=== PATIENT | male | born 1945 | race Caucasian/White ===

== ENCOUNTER 2016-09-16 15:06 | Inpatient (IN) ==
[2016-09-16] MEDS ORDERED: FUROSEMIDE 40 MG/4 ML VIAL IV STA (15:35)
[2016-09-16] MEDS ORDERED: DILTIAZEM 50 MG/10 ML VIAL IV STA ×2 (15:35→17:10)
--- NOTE | 2016-09-16 15:36 | EKG Report ---
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
[2016-09-16] MEDS ORDERED: ALBUTEROL/IPRATROPIUM 3 ML NEB RESP TX STA (15:42)
[2016-09-16] MEDS ORDERED: MORPHINE 2 MG/1 ML SYRINGE IV STA (15:42)
[2016-09-16] MEDS ORDERED: methylPREDNISolone SOD SUC 125 MG/2 ML VIAL IV STA (15:42)
[2016-09-16] MEDS ORDERED: ONDANSETRON 4 MG/2 ML VIAL IV STA (15:42)
[2016-09-16] MEDS ORDERED: NITROGLYCERIN 2% OINT 1 INCH/GM PACK TOP STA (15:43)
[2016-09-16 15:51] LABS: Basophils # 0.1 10*3/uL (0.0-0.2); Basophils % 1.1 % (0.0-0.8); Eosinophils # 0.4 10*3/uL (0.0-0.87); Eosinophils % 4.7 % (0.00-10.9); Hematocrit 37.6 VOL% (42.0-52.0); Immature Granulocytes % 0.4 %; Immature Granulocytes Absolute 0.04 #; Lymphocytes # 1.8 10*3/uL (1.4-4.0); Lymphocytes % 19.6 % (21.2-54.2); Mean Corpuscular HGB Conc 31.9 GM/DL (32-36); Mean Corpuscular Hemoglobin 28 PG (27-34); Mean Corpuscular Volume 87.4 FL (87-102); Mean Platelet Volume 9.5 FL (9.6-12.0); Monocytes # 0.9 10*3/uL (0.11-0.8); Monocytes % 9.7 % (1.7-12.7); Neutrophils # 5.9 10*3/uL (1.4-7.4); Neutrophils % 64.5 % (38.7-73.9); Platelet Count 340 T/CUMM (130-400); Red Cell Distribution Width 13.5 % (9.3-17.3); White Blood Count 9.1 T/CUMM (4-12)
[2016-09-16] MEDS ORDERED: MORPHINE 2 MG/1 ML SYRINGE ONE (15:52)
[2016-09-16] MEDS ORDERED: ONDANSETRON 4 MG/2 ML VIAL ONE (15:52)
[2016-09-16] MEDS ORDERED: FUROSEMIDE 40 MG/4 ML VIAL ONE (15:52)
[2016-09-16] MEDS ORDERED: methylPREDNISolone SOD SUC 125 MG/2 ML VIAL ONE (15:53)
[2016-09-16] MEDS ORDERED: DILTIAZEM 50 MG/10 ML VIAL IV ONE (15:53)
[2016-09-16] MEDS ORDERED: NITROGLYCERIN 2% OINT 1 INCH/GM PACK TOP ONE (15:54)
--- NOTE | 2016-09-16 15:59 | Emergency Department Note ---
Dinora Matamoros Brittany, am scribing for, and in the presence of, Alex Haro MD 15:52. Estrellita Matamoros Charles R, MD, personally performed the services described in this documentation, ascribed by Loren Farias in my presence, and it is both accurate and complete 559 . Arrival - Arrival Chief Complaint: Shortness of Breath Stated Complaint: low O2 stat -Heart Rate High came from ED Nursing Triage Note: COUGH/SOB FOR PAST 3 WEEKS, Mode of Arrival: Wheelchair Limitations: No Limitations Source: Patient Time Seen by Provider: 09/16/16 15:34 - History of Present Illness HPI Narrative: This is a 71 y/o white female,who presents to the ED for further evaluation of fluid overload. He states he has been SOB for "quite sometime now" but started to increase in the past 3 weeks. He denies any CP. He states laying up helps with the SOB. He reports a dry cough. He has not taken his blood pressure medication for the day secondary to being out of the medication and thinking his PCP, Dr. White would change it. He is not on blood thinners at this time. He reports he quite smoking cigarettes 20 years ago. Pt has no other complaints/ pain in the ED at this time. Pt has a PMHx of HTN, diverticulitis/ diverticulosis. Pt denies a surgical Hx. Pt denies a family medical Hx. Pt denies a social Hx. Onset (ago): week(s) (Started 3 weeks ago) Consistency: constant Severity: moderate Allergies/Adverse Reactions: Allergies Allergy/AdvReac Type Severity Reaction Status Date / Time No Known Allergies Allergy Verified 09/16/16 15:23 Home Medications: Home Medications Medication Instructions Recorded Confirmed Type Aspirin EC Tab 81 mg PO QAM 09/01/16 09/16/16 History Lisinopril [Prinivil] 10 mg PO DAILY 09/01/16 09/16/16 History Oxycodone HCl/Acetaminophen 1 each PO QID PRN 09/01/16 09/16/16 History [Percocet 10-325 mg Tablet] Tamsulosin [Flomax] 0.4 mg PO DAILY 09/01/16 09/16/16 History dilTIAZem HCl [Diltiazem ER] 180 mg PO DAILY 09/01/16 09/16/16 History Albuterol Neb [Proventil Neb] 2.5 mg RESP TX Q6HR 09/16/16 09/16/16 History Albuterol Sulfate [Proair HFA] 1 puff INH Q6H PRN 09/16/16 09/16/16 History Budesonide/Formoterol 160-4.5 2 puff INH BID 09/16/16 09/16/16 History [Symbicort 160-4.5] Pantoprazole Sodium 40 mg PO DAILY 09/16/16 09/16/16 History Sertraline HCl [Sertraline HCl] 50 mg PO DAILY 09/16/16 09/16/16 History Medical,Surgical,& Family Hx - Medical History Cardio: History of: Hypertension Gastrointestinal: History of: Diverticulitis/ Diverticulosis - Social History Smoking Status: Former smoker Exam Vital Signs: Vital Signs Temperature 98.7 F 09/16/16 15:30 Pulse Rate 118 H 09/16/16 17:48 Respiratory Rate 17 09/16/16 17:48 Blood Pressure 185/108 09/16/16 17:48 O2 Sat by Pulse Oximetry 92 L 09/16/16 17:48 - General General appearance: alert, in no apparent distress - Head Head exam: Present: atraumatic, normocephalic, normal inspection - Eye Eye exam: Present: normal appearance, PERRL, EOMI. Absent: nystagmus, miosis, mydriasis - ENT ENT exam: Present: normal exam, normal oropharynx, mucous membranes moist, TM's normal bilaterally, normal external ear exam - Neck Neck exam: Present: normal inspection, full ROM, trachea midline. Absent: tenderness, meningismus, lymphadenopathy, thyromegaly - Chest Chest inspection: Present: symmetric chest wall rise, other (Barrel chest). Absent: tenderness, rash, abscess - Respiratory Respiratory exam: Present: accessory muscle use, rales (Bilateral ), rhonchi ( Bilateral ). Absent: normal lung sounds bilaterally, prolonged expiratory phase - Cardiovascular Cardiovascular exam: Present: bradycardia, irregular rhythm, JVD - Abdominal Exam Abdominal exam: Present: soft, normal bowel sounds. Absent: distention, tenderness, guarding, rebound, rigidity - Rectal Exam Rectal exam: Present: deferred - Extremities Exam Extremities exam: Present: normal capillary refill, pedal edema (+2 Pedal edema) . Absent: tenderness, joint swelling, calf tenderness - Back Exam Back exam: Present: normal inspection, full ROM. Absent: tenderness, muscle spasm, rashes - Neurological Exam Neurological exam: Present: alert, oriented X3, CN II-XII intact. Absent: motor sensory deficit - Psychiatric Psychiatric exam: Present: normal affect, normal mood. Absent: depressed, agitated, anxious, flat affect, manic - Skin Skin exam: Present: warm, dry, intact, normal color. Absent: rash, cyanosis, diaphoresis, erythema, pallor, mottled Course - Consultations Consultation #1: Hospitalist will admit patient Time: 17:17 Results - Labs CBC & BMP: 09/16/16 15:38 09/16/16 15:38 Lab Results: I have reviewed the patients labs - Diagnostic Findings Procedure: Chest x-ray: report reviewed by me (COPD/bullous emphysema with chronic scariring in patient with prior median sternotomy. Progressive atelectasis/infiltration at the left lung base with small left pleural effusion. It is difficult to exclude other pleural-based pathology and follow- up chest x-ray is recommended. ) Critical Care Time Critical Care Time: Yes Total Critical Care Time: 90 Disposition Clinical Impression: Congestive heart failure, Atrial fibrillation with RVR, Malignant hypertension , Pleural effusion, Exertional dyspnea Case discussed with: patient Disposition: Still a Patient Condition: Guarded Time of Disposition: 17:17
--- NOTE | 2016-09-16 15:59 | XRay Report ---
XR chest 2V Date: 09/16/2016 3:33 PM History: Shortness of breath Comparison: 09/01/2016 Technique: PA and lateral chest Findings: The heart is minimally enlarged with prior median sternotomy. Calcification in the wall of the aorta. The lungs are overexpanded with chronic scarring. Progressive parenchymal findings at the left lung base with blunting of the left costophrenic angle. Stable mediastinum with degenerative changes. Impression: COPD/bullous emphysema with chronic scarring in patient with prior median sternotomy. Progressive atelectasis/infiltration at the left lung base with small left pleural effusion. It is difficult to exclude other pleural-based pathology and follow-up chest x-ray is recommended. PROCEDURE INTERPRETED AT [facility] DEPARTMENT OF RADIOLOGY Final Report Signed by: Dr. Adeline Buck
[2016-09-16 16:06] LABS: D-Dimer 2.9 MG/L FEU; PT Patient Result 10.9 SECS; Partial Thromboplastin Time 28.3 SECS (0-40)
[2016-09-16 16:13] LABS: Lactic Acid 1.1 MMOL/L (0.4-2.0)
[2016-09-16 16:16] LABS: Alanine Aminotransferase 16 U/L (16-61); Albumin 3.9 G/DL (3.4-5.0); Alkaline Phosphatase 95 U/L (45-117); Aspartate Amino Transferase 13 U/L (0-37); Bilirubin,Total < 0.39 MG/DL (0.2-1.0); Blood Urea Nitrogen 8 MG/DL (7-18); Calcium 9.2 MG/DL (8.5-10.1); Glucose 115 MG/DL (74-106); Osmolality,Calculated 273.7 MOS/KG (273-304); Potassium 3.9 MMOL/L (3.5-5.1); Sodium 138 MMOL/L (136-145); Total Protein 7.6 G/DL (6.4-8.3); Troponin I Only 0.024 NG/ML (0.00-0.045)
[2016-09-16 16:33] LABS: Apearance,Urine CLEAR (Clear); Bilirubin,Urine Negative (Negative); Blood, Urine Negative (Negative); Glucose,Urine (UA) Negative (Negative); Hyaline Casts,Urine 1 /LPF (0-3); Ketones,Urine Negative (Negative); Mucus,Urine Occasional /LPF (Occasional); Nitrite,Urine Negative (Negative); Protein,Urine Negative; RBC,Urine 1 /HPF (0-4); Urine Color Straw (Yellow); Urine Specific Gravity 1.005 (1.001-1.035); Urine Urobilinogen < 2.0 EU/DL (0.2-1.0)
[2016-09-16] MEDS ORDERED: DILTIAZEM 100 MG VIAL.ADD IV ONE (16:47)
--- NOTE | 2016-09-16 16:47 | CT Report ---
Exam: CT chest with contrast, PE study Date: 09/16/2016 Comparison: 05/21/2013 Reason: Shortness of breath with elevated d-dimer Technique: Axial images of the chest were obtained after administration of 80 cc of IV Omnipaque 350 intravenous contrast. Coronal reformatted images were also acquired. The study was performed per pulmonary embolism protocol. Total DLP: 364.30 Findings: The heart is minimally enlarged with prior median sternotomy, cardiac fat pads, and coronary artery calcifications. Limited contrast in the thoracic aorta which has not changed significantly in size. No pulmonary emboli are identified. No chest lymphadenopathy. Small bilateral pleural effusions are noted with finding larger on the right. Degenerative changes are noted. Bullous emphysema with chronic scarring at the lung apices. Progressive groundglass opacities with progressive diffuse parenchymal findings with consolidation, atelectasis and scarring. The findings are most pronounced in the lower lobes. Impression: No evidence of pulmonary embolism. Status post median sternotomy with minimal cardiomegaly and coronary artery calcifications. Prominent cardiac fat pads. Progressive bullous emphysema with small bilateral pleural effusions and findings consistent with pneumonia/edema in the lower lobes with associated atelectasis. However follow-up is recommended to document clearing and exclude additional underlying pathology. This CT exam was performed using one or more the following dose reduction techniques: Automated exposure control, adjustment of the MA and/or KV according to patient size, or use of iterative reconstruction technique. PROCEDURE INTERPRETED AT [facility] DEPARTMENT OF RADIOLOGY Final Report Signed by: Dr. Adeline Buck
[2016-09-16] MEDS ORDERED: SODIUM CHLORIDE 0.9% 100 ML IV ONE ×2 (16:48→17:34)
[2016-09-16] MEDS: DILTIAZEM INJ 100 MG in SODIUM CHLORIDE 0.9% 100 ML IV SCH (16:55)
[2016-09-16] MEDS ORDERED: cefTRIAXone 1,000 MG in SODIUM CHLORIDE 0.9% 100 ML IV STA (17:11)
[2016-09-16] MEDS ORDERED: cefTRIAXone 1,000 MG VIAL ONE (17:34)
[2016-09-16] MEDS ORDERED: ONDANSETRON 4 MG/2 ML VIAL IV PRN (18:01)
[2016-09-16] MEDS ORDERED: ACETAMINOPHEN 325 MG TABLET PO PRN (18:01)
[2016-09-16] MEDS ORDERED: DOCUSATE SODIUM 100 MG CAPSULE PO PRN (18:01)
--- NOTE | 2016-09-16 18:18 | Hospitalist History & Physical ---
Assessment and Plan (1) Atrial fibrillation with RVR Status: Acute Assessment and plan: Admit patient. Telemetry monitoring. Continue Cardizem infusion. consult cardiology to see patient. Consult sleep medicine as patient reports history of noncompliance with CPAP. TSH in a.m. EKG in a.m. anticoagulate patient Current Visit: Yes (2) Congestive heart failure Status: Acute Assessment and plan: BNP. IV Lasix for patient. echo ordered for patient. consult cardiology. Current Visit: Yes (3) Exertional dyspnea Status: Acute Assessment and plan: Supplemental O2. Bed rest Current Visit: Yes (4) Malignant hypertension Status: Acute Assessment and plan: Admitted to CCU for closer monitoring. Restart home meds. IV antihypertensive medication. Current Visit: Yes (5) Pleural effusion Status: Acute Current Visit: Yes (6) COPD (chronic obstructive pulmonary disease) Status: Acute Current Visit: Yes History of Present Illness Chief complaint: short of breath History of present illness: Mr. Wells is a 71 year old white male with a history of hypertension, TIA, carotid endarectomy, stents, CABG, and THIAGO that presented to the ED today with complaints of shortness of breath and cough. Patient reported that he saw his PCP Dr. White today that he was referred to the ED for further evaluation.Pt. states that he has been short of breath for the past 3 weeks but that it has worsened in the last couple of days. Patient states that the shortness of breath is relieved with sitting. Patient states that he does have a cough that is productive with a white frothy sputum. Additionally, he reports bilateral lower extremity edema he states occurred overnight. Patient also reports having been diagnosed with obstructive sleep apnea but that he has not been compliant with use of home device. Patient denies any chest pain, fever, N/V/D. Patient denies use of blood thinners. He also reports he quit smoking 23 years ago. On arrival to the ED patient noted in 110s to 150s. Patient also very hypertensive. Elevated d-dimer noted. CT patient negative for PE. Patient will be admitted to the hospitalist program for further evaluation and treatment. Home Medications Medication Instructions Recorded Confirmed Type Aspirin EC Tab 81 mg PO QAM 09/01/16 09/16/16 History Lisinopril [Prinivil] 10 mg PO DAILY 09/01/16 09/16/16 History Oxycodone HCl/Acetaminophen 1 each PO QID PRN 09/01/16 09/16/16 History [Percocet 10-325 mg Tablet] Tamsulosin [Flomax] 0.4 mg PO DAILY 09/01/16 09/16/16 History dilTIAZem HCl [Diltiazem ER] 180 mg PO DAILY 09/01/16 09/16/16 History Albuterol Neb [Proventil Neb] 2.5 mg RESP TX Q6HR 09/16/16 09/16/16 History Albuterol Sulfate [Proair HFA] 1 puff INH Q6H PRN 09/16/16 09/16/16 History Budesonide/Formoterol 160-4.5 2 puff INH BID 09/16/16 09/16/16 History [Symbicort 160-4.5] Pantoprazole Sodium 40 mg PO DAILY 09/16/16 09/16/16 History Sertraline HCl [Sertraline HCl] 50 mg PO DAILY 09/16/16 09/16/16 History Allergies Allergy/AdvReac Type Severity Reaction Status Date / Time No Known Allergies Allergy Verified 09/16/16 15:23 Medical,Surgical,& Family Hx - Medical History Cardio: History of: Hypertension Respiratory: History of: COPD Gastrointestinal: History of: Diverticulitis/ Diverticulosis - Social History Smoking Status: Former smoker Functional capacity: independent ambulation - Constitutional Constitutional: Absent: fever(s), headache(s) - EENT Eyes: Present: loss of vision, requires corrective lense Ears: Absent: ear discharge Nose, mouth and throat: Absent: dysphagia - Cardiovascular Cardiovascular: Present: dyspnea on exertion, edema. Absent: chest pain at rest - Respiratory Respiratory: Present: cough (white frothy sputum), dyspnea - Gastrointestinal Gastrointestinal: Absent: abdominal pain, nausea, vomiting - Genitourinary Genitourinary: Absent: difficulty urinating - Neurological Neurological: Absent: confusion, dizziness - Psychiatric Psychiatric: Absent: confusion Exam - Constitutional Vitals: Period Temp Pulse Resp BP Sys/Martinez Pulse Ox Last 24 Hr 98.7 F-98.7 F 103-127 13-22 159-186/104-130 89-93 General appearance: normal weight, no acute distress - Head Head exam: Present: normal inspection, normocephalic - Eye Eye exam: Present: EOMI. Absent: periorbital swelling Pupils: Present: MISSAEL. Absent: dilated - Respiratory Respiratory exam: Present: wheezes, other (decreased breath sounds) - Cardiovascular Cardiovascular exam: Present: irregular rhythm (afib with rvr), other - GI/Abdominal GI/Abdominal exam: Present: normal bowel sounds, soft. Absent: tenderness - Extremities Exam Extremities exam: Present: normal capillary refill, full ROM, edema (bilateral lower extremity edema) - Neurological Exam Neurological exam: Present: alert, oriented X3, normal gait - Psychiatric Psychiatric exam: Present: normal affect, normal mood - Skin Skin exam: Present: normal color, warm, dry Results - Labs CBC & BMP: 09/16/16 15:38 09/16/16 15:38 Lab Results: I have reviewed the past 24 hour labs
[2016-09-16] MEDS ORDERED: hydrALAZINE 20 MG/1 ML VIAL IV PRN (18:47)
[2016-09-16] MEDS ORDERED: ALBUTEROL 2.5 MG/3 ML NEB RESP TX PRN (19:53)
[2016-09-16] MEDS ORDERED: hydrALAZINE 20 MG/1 ML VIAL IV ONE (19:53)
[2016-09-16 19:57] LABS: Apearance,Urine CLEAR (Clear); Bilirubin,Urine Negative (Negative); Blood, Urine Negative (Negative); Glucose,Urine (UA) Negative (Negative); Ketones,Urine Negative (Negative); Nitrite,Urine Negative (Negative); Protein,Urine Negative; Urine Color Colorless (Yellow); Urine Specific Gravity 1.009 (1.001-1.035); Urine Urobilinogen < 2.0 EU/DL (0.2-1.0); WBC,Urine <1 /HPF (0-6)
[2016-09-16] MEDS ORDERED: ENOXAPARIN 40 MG/0.4 ML SYRINGE SUBCUT SCH (20:30)
[2016-09-16] MEDS ORDERED: PERCOCET PO PRN (21:00)
[2016-09-16] MEDS: oxyCODONE/ACETAMINOPHEN 5-325 MG TABLET PO PRN (21:39)
[2016-09-16] MEDS: BUDESONIDE/FORMOTEROL 160-4.5 INHALER 6 GM INH SCH (21:42)
[2016-09-16] MEDS: ALBUTEROL 2.5 MG/3 ML NEB RESP TX SCH (23:40)
[2016-09-17] MEDS: ALBUTEROL 2.5 MG/3 ML NEB RESP TX SCH ×4 (00:04→22:23)
[2016-09-17 04:04] LABS: Basophils % 0.3 % (0.0-0.8); Hematocrit 37.7 VOL% (42.0-52.0); Hemoglobin 11.9 GM/DL (14.0-18.0); Immature Granulocytes % 0.5 %; Immature Granulocytes Absolute 0.03 #; Lymphocytes # 0.7 10*3/uL (1.4-4.0); Lymphocytes % 10.2 % (21.2-54.2); Mean Corpuscular HGB Conc 31.6 GM/DL (32-36); Mean Corpuscular Hemoglobin 27 PG (27-34); Mean Corpuscular Volume 86.7 FL (87-102); Mean Platelet Volume 10.7 FL (9.6-12.0); Monocytes # 0.1 10*3/uL (0.11-0.8); Monocytes % 1.2 % (1.7-12.7); Neutrophils # 5.8 10*3/uL (1.4-7.4); Neutrophils % 87.8 % (38.7-73.9); Platelet Count 264 T/CUMM (130-400); Red Blood Count 4.35 MC/CUMM (3.8-5.5); Red Cell Distribution Width 13.3 % (9.3-17.3); White Blood Count 6.7 T/CUMM (4-12)
[2016-09-17 04:13] LABS: INR 1.1; PT Patient Result 11.4 SECS
[2016-09-17 04:44] LABS: Hypochromasia Slight; Platelet Estimate Normal
[2016-09-17 04:47] LABS: Calcium 8.7 MG/DL (8.5-10.1); Osmolality,Calculated 284.1 MOS/KG (273-304); Potassium 3.8 MMOL/L (3.5-5.1); Risk Ratio 3.09; Thyroid Stimulating Hormone 0.396 uIU/ml (0.358-3.74)
[2016-09-17] MEDS: ASPIRIN EC 81 MG TABLET PO SCH (09:00)
[2016-09-17] MEDS: BUDESONIDE/FORMOTEROL 160-4.5 INHALER 6 GM INH SCH ×2 (09:00→21:06)
[2016-09-17] MEDS: PANTOPRAZOLE 40 MG TABLET PO SCH (09:00)
[2016-09-17] MEDS: TAMSULOSIN 0.4 MG CAPSULE PO SCH (09:00)
[2016-09-17] MEDS: SERTRALINE 50 MG TABLET PO SCH (09:00)
[2016-09-17] MEDS: LISINOPRIL 10 MG TABLET PO SCH (09:00)
[2016-09-17] MEDS: DILTIAZEM CD 180 MG CAPSULE PO SCH (09:00)
[2016-09-17] MEDS: oxyCODONE/ACETAMINOPHEN 5-325 MG TABLET PO PRN ×2 (09:20→19:00)
--- NOTE | 2016-09-17 13:37 | Hospitalist Progress Note ---
Assessment and Plan (1) Atrial fibrillation with RVR Status: Acute Assessment and plan: The patient is now on full anticoagulation to reduce the risk of stroke. The patient will be transferred to telemetry monitoring and we will request consultation with the shadow graph weight operator. We will continue Cardizem oral medication to control heart rate and treat COPD with IV antibiotics, IV steroid, and beta agonist nebulized breathing therapy. Current Visit: Yes (2) COPD (chronic obstructive pulmonary disease) Status: Acute Current Visit: Yes Hospitalist: Subjective Interval history: Mr. Barfield is admitted to the hospital with shortness of breath due to COPD exacerbation and complicated by hypertension and atrial fibrillation. The patient's blood pressure and heart rate are improved today and he has less shortness of breath with standard COPD care. The patient is ready for transfer to the floor and will continue evaluation of the atrial fibrillation. Exam - Constitutional Vitals: Period Temp Pulse Resp BP Sys/Martinez Pulse Ox Last 24 Hr 97.4 F-98.9 F 76-127 12-24 110-186/61-130 89-98 Exam: Constitutional System: Mild distress. Mild tremulousness. Head: Normocephalic, atraumatic. Ears, Nose and Throat System: No evidence of Otitis or Mastoiditis. No epistaxis or discharge Eyes System: Pupils equal, round, and reactive. Extraocular muscles intact. Neck: Supple, without adenopathy, No jugular venous distention. No thyromegaly , neck mass, or prior surgery apparent. Respiratory System: Chest mild wheezing with moderate air trapping to auscultation. Cardiovascular System: Heart with irregular rate and rhythm. No murmur. GI System: Abdomen soft, nontender. Normo active bowel sounds present. Musculoskeletal System: limbs with no pedal edema. Full distal pulses. Results - Labs CBC & BMP: 09/17/16 03:47 09/17/16 03:47 Lab Results: I have reviewed the past 24 hour labs
[2016-09-17] MEDS ORDERED: ENOXAPARIN 40 MG/0.4 ML SYRINGE SUBCUT SCH (14:00)
[2016-09-17] MEDS: cefTRIAXone 1,000 MG in SODIUM CHLORIDE 0.9% 100 ML IV SCH (14:40)
[2016-09-17] MEDS: methylPREDNISolone SOD SUC 40 MG/1 ML VIAL IV SCH (14:40)
[2016-09-17] MEDS: ENOXAPARIN 80 MG/0.8 ML SYRINGE SUBCUT SCH (14:40)
[2016-09-17] MEDS: DILTIAZEM INJ 100 MG in SODIUM CHLORIDE 0.9% 100 ML IV SCH (18:30)
--- NOTE | 2016-09-17 21:01 | ECHO Report ---
Mian Wells Exam Date: 09/17/2016 08:08 Referring Physician: Technologist: Cee Pacheco RDCS Age: 71 Ht (in): 68 Wt (lb): 184 Gender: M Exam Location: [facility] Echo Indications: Atrial fibrillation, Shortness of breath, CAD with previous CABG, Essential (primary) hypertension, Pleural effusion, not elsewhere classified, COPD, THIAGO, Edema, unspecified, Cough BP: 145 / 84 HR: 103 Rhythm: Atrial fibrillation Technical Quality: Technically difficult study IMPRESSIONS Left ventricular ejection fraction is estimated at 50-55%. Bilateral atrial enlargement. Mild mitral annular calcification and mild leaflet thickening with mild mitral valve regurgitation. Mild aortic valve sclerosis with mild aortic valve regurgitation. Mild tricuspid valve regurgitation. MEASUREMENTS (Male / Female) Normal Values 2D ECHO LV Diastolic Diameter PLAX 5.7 cm 4.2 - 5.9 / 3.9 - 5.3 cm LV Systolic Diameter PLAX 3.0 cm LV Fractional Shortening PLAX 46.9 % IVS Diastolic Thickness 1.3 cm 0.6 - 1.0 / 0.6 - 0.9 cm LVPW Diastolic Thickness 1.3 cm 0.6 - 1.0 / 0.6 - 0.9 cm RV Internal Dim ED PLAX 3.4 cm Aortic Root Diameter 3.7 cm LA Systolic Diameter LX 5.8 cm 3.0 - 4.0 / 2.7 - 3.8 cm DOPPLER TR Peak Velocity 374.0 cm/s TR Peak Gradient 56.0 mmHg FINDINGS Left Ventricle Normal left ventricular cavity size. Mild left ventricular hypertrophy. Left ventricular ejection fraction is estimated at 50-55%. Right Ventricle The right ventricle is normal in size and function. Right Atrium Moderately increased right atrial size. Left Atrium Moderately increased left atrial size. Mitral Valve Mild mitral annular calcification and mild leaflet thickening with mild mitral valve regurgitation. Aortic Valve Mild aortic valve sclerosis with mild aortic valve regurgitation. Tricuspid Valve Morphologically normal tricuspid valve. Mild tricuspid valve regurgitation. Tricuspid regurgitation velocities suggest a PAP of 66 mmHg. Pulmonic Valve Morphologically normal pulmonic valve. Trace pulmonary valve regurgitation. Pericardium Normal pericardium without effusion. Aorta Normal ascending aorta dimension. Charles Mayes (Electronically Signed) Final Date: 17 September 2016 20:59
[2016-09-18] MEDS: oxyCODONE/ACETAMINOPHEN 5-325 MG TABLET PO PRN ×4 (00:42→19:07)
[2016-09-18] MEDS: ALBUTEROL 2.5 MG/3 ML NEB RESP TX SCH ×4 (00:42→20:11)
[2016-09-18] MEDS: ENOXAPARIN 80 MG/0.8 ML SYRINGE SUBCUT SCH ×2 (01:26→18:25)
[2016-09-18] MEDS: methylPREDNISolone SOD SUC 40 MG/1 ML VIAL IV SCH ×2 (01:27→13:15)
[2016-09-18 04:44] LABS: Basophils % 0.1 % (0.0-0.8); Hemoglobin 10.4 GM/DL (14.0-18.0); Immature Granulocytes % 0.5 %; Immature Granulocytes Absolute 0.06 #; Lymphocytes # 0.8 10*3/uL (1.4-4.0); Lymphocytes % 7.1 % (21.2-54.2); Mean Corpuscular HGB Conc 32.5 GM/DL (32-36); Mean Corpuscular Hemoglobin 28 PG (27-34); Mean Corpuscular Volume 85.8 FL (87-102); Mean Platelet Volume 10.3 FL (9.6-12.0); Monocytes # 0.3 10*3/uL (0.11-0.8); Monocytes % 2.6 % (1.7-12.7); Neutrophils # 10.2 10*3/uL (1.4-7.4); Neutrophils % 89.7 % (38.7-73.9); Platelet Count 317 T/CUMM (130-400); Red Blood Count 3.73 MC/CUMM (3.8-5.5); Red Cell Distribution Width 13.7 % (9.3-17.3); White Blood Count 11.4 T/CUMM (4-12)
[2016-09-18 04:58] LABS: Calcium 8.7 MG/DL (8.5-10.1); Magnesium 2.2 MG/DL (1.8-2.4); Osmolality,Calculated 278.8 MOS/KG (273-304); Potassium 3.8 MMOL/L (3.5-5.1)
[2016-09-18] MEDS: TAMSULOSIN 0.4 MG CAPSULE PO SCH (08:52)
[2016-09-18] MEDS: DILTIAZEM CD 180 MG CAPSULE PO SCH (08:52)
[2016-09-18] MEDS: ASPIRIN EC 81 MG TABLET PO SCH (08:52)
[2016-09-18] MEDS: SERTRALINE 50 MG TABLET PO SCH (08:52)
[2016-09-18] MEDS: LISINOPRIL 10 MG TABLET PO SCH (08:52)
[2016-09-18] MEDS: PANTOPRAZOLE 40 MG TABLET PO SCH (08:52)
[2016-09-18] MEDS: BUDESONIDE/FORMOTEROL 160-4.5 INHALER 6 GM INH SCH ×2 (08:53→21:09)
[2016-09-18] MEDS ORDERED: PNEUMOCOCCAL VACCINE (13 VALENT) 0.5 ML SYRINGE IM ONE (09:00)
--- NOTE | 2016-09-18 11:48 | Cardiology Consult Note ---
Assessment and Plan - Time spent with patient Time spent with patient: Greater than 30 minutes (Chart review, film review examination documentation and orders also discussed with family) (1) Coronary artery disease Status: Chronic Current Visit: Yes Qualifiers: Coronary Disease-Associated Artery/Lesion type: [place] artery [place] vs. transplanted heart: [place] heart Associated angina: without angina Qualified Code(s): I25.10 - Atherosclerotic heart disease of [place] coronary artery without angina pectoris (2) Dyslipidemia Status: Chronic Current Visit: Yes (3) Carotid arterial disease Status: Chronic Current Visit: Yes Qualifiers: Laterality: bilateral Qualified Code(s): I77.9 - Disorder of arteries and arterioles, unspecified (4) Left atrial enlargement Status: Chronic Current Visit: Yes (5) Atrial fibrillation with RVR Status: Acute Assessment and plan: Rate control and anticoagulation Current Visit: Yes (6) COPD (chronic obstructive pulmonary disease) Status: Acute Current Visit: Yes Qualifiers: COPD type: chronic bronchitis Chronic bronchitis type: simple Qualified Code(s): J41.0 - Simple chronic bronchitis (7) History of gastrointestinal bleeding Status: Chronic Assessment and plan: Did not require transfusion has not been recurrent source and Current Visit: Yes History of Present Illness - Data of Consult Patient: new to practice Consult date: 09/18/16 Requesting Physician: Anibal Farooq Primary care physician: Que hazel) - Consult Narrative Reason for consult: Atrial fibrillation rapid ventricular response History of present illness: Mr. Wells is a 71 year old male admitted on 09/16/2016. He had transthoracic echocardiogram yesterday and I was consulted on the a.m. of 2016 to see for new onset atrial fibrillation rapid ventricular response. The patient has been largely asymptomatic except he has had a dyspnea. He denies any chest pain orthopnea or lower extremity edema. His primary care physician is Dr. Carl White he has previously been followed by Dr. Ad Hazel in outpatient setting. The patient had coronary bypass grafting in 1984. And a most recent heart cath in 2010 he had a chronic total occlusion of the RCA and no patent vein grafts. The left system looked good. The JANELLE was not injected at that time. There is a single injection of the vein graft to the right. This graft was occluded proximally. The patient also has obstructive sleep apnea and is admittedly noncompliant with his CPAP. He denies any chest pain. I reviewed his EKGs on admission. No acute ischemic changes. The patient has enlarged left atrium at 5.8 cm. I would talk to the patient about options. I recommended left heart catheterization selective coronary angiography and possible percutaneous coronary mention. He wished to think about it. I will continue Lovenox for now. His daughter discussed with me over the phone and states that she would like for him to have a heart cath. I have encouraged him to talk about it and I can re-review tomorrow with Dr. Marshall. I will hold the patient n.p.o. after midnight tonight. He had a single troponin that was not significantly elevated especially given his A. fib with RVR and his known chronic total occlusion of the right. 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 This would be a reasonable option but not likely the best. Given his left atrial enlargement I think it is best that he is treated with rate control and anticoagulation. He did have a GI bleed a few years ago but states he did not require transfusion. He does not fall. CC: Anibal Farooq MD - Home Medications and Allergies Home Medications: Home Medications Medication Instructions Recorded Confirmed Type Aspirin EC Tab 81 mg PO QAM 09/01/16 09/16/16 History Lisinopril [Prinivil] 10 mg PO DAILY 09/01/16 09/16/16 History Oxycodone HCl/Acetaminophen 1 each PO QID PRN 09/01/16 09/16/16 History [Percocet 10-325 mg Tablet] Tamsulosin [Flomax] 0.4 mg PO DAILY 09/01/16 09/16/16 History dilTIAZem HCl [Diltiazem ER] 180 mg PO DAILY 09/01/16 09/16/16 History Albuterol Neb [Proventil Neb] 2.5 mg RESP TX Q6HR 09/16/16 09/16/16 History Albuterol Sulfate [Proair HFA] 1 puff INH Q6H PRN 09/16/16 09/16/16 History Budesonide/Formoterol 160-4.5 2 puff INH BID 09/16/16 09/16/16 History [Symbicort 160-4.5] Pantoprazole Sodium 40 mg PO DAILY 09/16/16 09/16/16 History Sertraline HCl [Sertraline HCl] 50 mg PO DAILY 09/16/16 09/16/16 History Allergies/Adverse Reactions: Allergies Allergy/AdvReac Type Severity Reaction Status Date / Time No Known Allergies Allergy Verified 09/16/16 15:23 - Constitutional Constitutional: Present: stops breathing during sleep (Noncompliant with CPAP). Absent: anorexia, chills, daytime sleepiness, weakness - EENT Eyes: Absent: blurry vision Ears: Absent: decreased hearing Nose, mouth and throat: Absent: dysphagia, epistaxis, lip swelling - Cardiovascular Cardiovascular: Present: dyspnea, dyspnea on exertion, palpitations. Absent: chest pain at rest, chest pain with activity, edema, orthopnea - Respiratory Respiratory: Present: dyspnea, dyspnea on exertion, snoring. Absent: wheezing, pain on inspiration - Gastrointestinal Gastrointestinal: Absent: abdominal pain, bloating, dyspepsia, heartburn, hematemesis, hematochezia - Genitourinary Genitourinary: Present: difficulty urinating. Absent: dysuria, hematuria - Musculoskeletal Musculoskeletal: Present: arthralgias, back pain, limited range of motion, other (Lots of back pain and neck pain he has significant kyphosis) - Neurological Neurological: Absent: abnormal gait - Psychiatric Psychiatric: Absent: anxiety, depression - Endocrine Endocrine: Absent: cold intolerance, heat intolerance - Hematologic/Lymphatic Hematologic/Lymphatic: Absent: easy bleeding, easy bruising Medical,Surgical,& Family Hx - Medical History Cardio: History of: Cardiac Dysrhythmia, CHF (His ejection fraction is preserved on this admission), Hypertension Neurology: History of: Seizures (after Carotid Endarterectomy), TIA HEENT: History of: Eye Problem (cataracts) Endocrine: History of: Diabetes Mellitus (NIDDM) Respiratory: History of: COPD Gastrointestinal: History of: Diverticulitis/ Diverticulosis Musculoskeletal: History of: Back/Neck Problems (bulging disc), Degenerative Disk Disease, Herniated Disk Other: History of: Miscellaneous Medical Problems (Sounds like he has had a TIA. ) - Surgical History Cardiac Surgeries: Sugical HX of: Cardiac Surgery (CABG 1987 -no patent grafts at cath in 2010), Carotid Endarterectomy (Bilateral) Neurologic Surgeries: Patient denies: Neurologic Surgery HEENT Surgeries: Surgical HX of: Carotid Endarterectomy (Bilateral), Tonsilectomy & Adenoidectomy - Family History Family History: Reports;: Family Diabetes (father/mother), Family Heart Disease (father/mother), Family Hypertension (father/mother) - Social History Smoking Status: Former smoker Frequency of Alcohol Use: Rarely Type of Drug Use: None Marital Status: Lives With:: Children Functional capacity: independent ambulation (Limited by back pain) Physical Examination Vital Signs Temp Pulse Resp BP Pulse Ox 98.7 F 121 H 22 183/130 91 L 09/16/16 15:16 09/16/16 15:16 09/16/16 15:16 09/16/16 15:16 09/16/16 15:16 General: Present: Appears Well (Mild kyphosis ) Neck: Present: Supple Neck Cardiac: Present: Irregularly Regular (His rate is controlled at about 100), Other (PMI is within normal limits. No gallop.) Lungs: Present: Normal Breath Sounds Neuro: Present: Cranial Nerve 2-12 Intact, Motor Function Intact Abdomen: Present: Soft, Active Bowel Sounds Skin: Present: Clear Extremities: Present: No Clubbing, No Cyanosis. Absent: Edema Result/EKG - Labs CBC & BMP: 09/18/16 04:19 09/18/16 04:19 Labs: Laboratory Results - last 24 hr 09/18/16 09/18/16 04:19 04:19 WBC 11.4 D RBC 3.73 L Hgb 10.4 L Hct 32.0 L MCV 85.8 L MCH 28 MCHC 32.5 RDW 13.7 Plt Count 317 D MPV 10.3 Neut % (Auto) 89.7 H Lymph % (Auto) 7.1 L [place] % (Auto) 2.6 Eos % (Auto) 0.0 Baso % (Auto) 0.1 Neut # (Auto) 10.2 H Lymph # (Auto) 0.8 L [place] # (Auto) 0.3 Eos # (Auto) 0.0 Baso # (Auto) 0.0 Immature Gran % 0.5 Nucleated RBC % 0.0 Immature Gran # 0.06 Nucleated RBCs # 0.00 Sodium 137 Potassium 3.8 Chloride 96 L Carbon Dioxide 33 H Anion Gap 11.8 BUN 21 H Creatinine 0.70 GFR Calculation 105 BUN/Creatinine Ratio 30.00 H Glucose 147 H Calculated Osmolality 278.8 Calcium 8.7 Magnesium 2.2 - EKG EKG results: interpreted by me (A. fib flutter with RVR no acute ST segment changes)
[2016-09-18] MEDS ORDERED: DILTIAZEM CD 240 MG CAPSULE PO SCH (12:58)
--- NOTE | 2016-09-18 12:58 | Hospitalist Progress Note ---
Assessment and Plan (1) Atrial fibrillation with RVR Status: Acute Assessment and plan: The patient is now on full anticoagulation with Eliquis to reduce the risk of stroke. The patient continues on rate control. We will continue therapy of COPD. I coordinate care with Dr. Cade today and we anticipate Dr. Marshall returning tomorrow to get further counseling on the patient's options to evaluate cardiac status. Current Visit: Yes (2) COPD (chronic obstructive pulmonary disease) Status: Acute Current Visit: Yes Qualifiers: COPD type: chronic bronchitis Chronic bronchitis type: simple Qualified Code(s): J41.0 - Simple chronic bronchitis Hospitalist: Subjective Interval history: Mr. Wells is now resting on telemetry. He remains in atrial fibrillation with controlled rate. I coordinated care with Dr. Cade today he has offered to arrange coronary arteriogram. The patient is considering this option. In the meantime the patient will continue on oral Eliquis and rate control with Coreg. Exam - Constitutional Vitals: Period Temp Pulse Resp BP Sys/Martinez Pulse Ox Last 24 Hr 97.6 F-98.2 F 102-117 16-102 96-156/45-99 85-99 Exam: Constitutional System: Mild distress. Mild tremulousness. Head: Normocephalic, atraumatic. Ears, Nose and Throat System: No evidence of Otitis or Mastoiditis. No epistaxis or discharge Eyes System: Pupils equal, round, and reactive. Extraocular muscles intact. Neck: Supple, without adenopathy, No jugular venous distention. No thyromegaly , neck mass, or prior surgery apparent. Respiratory System: Chest mild wheezing with moderate air trapping to auscultation. Cardiovascular System: Heart with irregular rate and rhythm. No murmur. GI System: Abdomen soft, nontender. Normo active bowel sounds present. Musculoskeletal System: limbs with no pedal edema. Full distal pulses. Results - Labs CBC & BMP: 09/18/16 04:19 09/18/16 04:19 Lab Results: I have reviewed the past 24 hour labs
[2016-09-18] MEDS: CARVEDILOL 6.25 MG TABLET PO SCH ×2 (13:15→21:11)
[2016-09-18] MEDS: cefTRIAXone 1,000 MG in SODIUM CHLORIDE 0.9% 100 ML IV SCH (13:21)
[2016-09-18] MEDS ORDERED: ATORVASTATIN 80 MG TABLET PO SCH (21:00)
[2016-09-18] MEDS ORDERED: APIXABAN 5 MG TABLET PO SCH (21:00)
[2016-09-18] MEDS: ASCORBIC ACID 500 MG TABLET PO SCH (21:09)
[2016-09-19] MEDS: ALBUTEROL 2.5 MG/3 ML NEB RESP TX SCH ×3 (01:08→13:48)
[2016-09-19] MEDS: oxyCODONE/ACETAMINOPHEN 5-325 MG TABLET PO PRN ×2 (01:25→08:37)
[2016-09-19] MEDS: methylPREDNISolone SOD SUC 40 MG/1 ML VIAL IV SCH ×2 (01:50→13:33)
[2016-09-19] MEDS: ENOXAPARIN 80 MG/0.8 ML SYRINGE SUBCUT SCH (06:30)
[2016-09-19] MEDS: ASPIRIN EC 81 MG TABLET PO SCH (08:32)
[2016-09-19] MEDS: SERTRALINE 50 MG TABLET PO SCH (08:32)
[2016-09-19] MEDS: PANTOPRAZOLE 40 MG TABLET PO SCH (08:32)
[2016-09-19] MEDS: CARVEDILOL 6.25 MG TABLET PO SCH (08:32)
[2016-09-19] MEDS: BUDESONIDE/FORMOTEROL 160-4.5 INHALER 6 GM INH SCH (08:33)
[2016-09-19] MEDS: LISINOPRIL 10 MG TABLET PO SCH (08:33)
[2016-09-19] MEDS: ASCORBIC ACID 500 MG TABLET PO SCH (08:33)
[2016-09-19] MEDS: TAMSULOSIN 0.4 MG CAPSULE PO SCH (08:33)
--- NOTE | 2016-09-19 09:20 | Physician Query Form ---
CLICK EDIT DOCUMENT TO SELECT QUERY ANSWER --> OK --> SIGN Carolyn Katz RN, CCDS Certified Clinical Travelift Operator W) [phone] (f) [phone] [email or web address] PROVIDERS: Make your selection(s) from the choices in EACH section by typing an "x" and enter comments in the comment section. Please use your independent medical judgment in providing your response. This request does not imply that any particular answer is desired or expected. CLINICAL INDICATORS: (Providers should not edit this section) The medical record indicates that the patient was admitted with AF, congestive heart failure (Acute), ECHO 50-55%, BNP of 256 and the patient was treated with IV Lasix. Please provide further specificity regarding CHF. ACUITY: ( ) Acute ( ) Chronic (X ) Acute on Chronic ( ) Clinically unable to determine TYPE: (X ) Systolic (HFrEF - heart failure with reduced systolic function/EF) ( ) Diastolic (HFpEF - heart failure with preserved systolic function/EF) ( ) Combined Systolic/Diastolic ( ) Other, please specify: ( ) Clinically unable to determine ( ) The patient does NOT have CHF COMMENTS: PLEASE ALSO DOCUMENT RESPONSE IN PROGRESS NOTES AND/OR DISCHARGE SUMMARY Use of terms such as suspected, likely, or probable (associated with a specific diagnosis that is being evaluated, monitored, or treated as if it exists) are acceptable and can be restated in the discharge summary if not ruled out. MTDD
[2016-09-19 12:26] VITALS: BP 142/89
--- NOTE | 2016-09-19 14:34 | Discharge Summary ---
Hospital Course - Hospital Course Hospital Course: The patient was admitted the hospital with COPD exacerbation. He required intensive care unit therapy with beta agonist nebulized breathing therapy, IV antibiotic, and steroid. The patient had atrial arrhythmia at the time of admission and we had cardiology evaluation of the arrhythmia. The patient was treated with intravenous and oral Cardizem and Coreg was added. It appears that the patient's atrial arrhythmia is chronic. Echocardiogram reveals left atrium of [address] Cade felt it was unlikely the patient would be successfully managed to a sinus rhythm. He started the patient on Eliquis to reduce the risk of stroke. The patient was offered coronary arteriogram since his last arteriogram was about 6 years ago and he had disease at that time. The patient declined coronary arteriogram. Dr. marshall also counseled the patient and requested that he follow-up in the office with possible stress test. The patient will have outpatient evaluation for the possibility of home O2. The patient's examination is improved. On the date of discharge the chest is clear and air trapping is mild. Heart has irregular rhythm consistent with atrial fibrillation at a controlled rate. Time required for [id number] evaluation, coordination with Dr. marshall, coordination with rn field case manager, preparation of discharge documents required 42 minutes. - Time spent with patient Time with patient DS: Greater than 30 minutes Diagnosis - Discharge Diagnosis (1) Atrial fibrillation with RVR Status: Chronic (2) COPD (chronic obstructive pulmonary disease) Status: Chronic Discharge Plan - Discharge Data Disposition: Disch To Home/Self Care Condition at Discharge: Stable Discharge Diet: advance to your usual diet Activity: resume usual activities as tolerated - Discharge Medications New Diltiazem Cd Cap [Cardizem CD] 240 mg PO DAILY #60 capsule predniSONE TAB [PredniSONE] 10 mg PO BID #20 tablet cephALEXin [Keflex] 500 mg PO TID #15 capsule Continue Aspirin EC Tab 81 mg PO QAM Lisinopril [Prinivil] 10 mg PO DAILY Oxycodone HCl/Acetaminophen [Percocet 10-325 mg Tablet] 1 each PO QID PRN PRN Reason: Pain Budesonide/Formoterol 160-4.5 [Symbicort 160-4.5] 2 puff INH BID Albuterol Sulfate [Proair HFA] 1 puff INH Q6H PRN PRN Reason: Shortness Of Breath/Wheezing Albuterol Neb [Proventil Neb] 2.5 mg RESP TX Q6HR Tamsulosin [Flomax] 0.4 mg PO DAILY Sertraline HCl 50 mg PO DAILY Pantoprazole Sodium 40 mg PO DAILY Discontinued dilTIAZem HCl [Diltiazem ER] 180 mg PO DAILY - Follow Up or Referral Follow Up: Jovany Marshall MD [Physician] - 2 Weeks - Forms/Instructions Exam - Constitutional Vitals: Period Temp Pulse Resp BP Sys/Martinez Pulse Ox Last 24 Hr 97.4 F-98.6 F 87-106 16-24 125-164/69-100 91-99 Discharge Results Procedures and tests throughout hospitalization: Pending Orders 09/16/16 17:31 Blood Culture Stat Labs on day of discharge: Preliminary micro results at discharge 09/16/16 17:31 Blood Culture - Preliminary Blood No growth at 1 day 09/16/16 17:23 Blood Culture - Preliminary Blood No growth at 1 day DS: Provider Date of admission: 09/16/16 17:40 Primary care physician: Que White DO Attending physician on admission: Kristopher Villatoro DO Consults: 09/16/16 18:08 Consult to Physician [CONS] Routine Comment: Consulting Provider: Cardiology - [facility] Consult to Sleep Center [CONS] Routine Reason for Sleep Center: Sleep Center Physician Discharging clinician: Anibal Farooq MD
--- NOTE | 2016-09-19 14:48 | Cardiology Progress Note ---
I, Taylor Vazquez RN, am scribing for, and in the presence of, Jovany Marshall MD 14:46. Assessment and Plan (1) Atrial fibrillation with RVR Status: Chronic Assessment and plan: I discussed with the patient. He is not having any chest pain. There is no chest pain with exertion. It is thought that his shortness of breath is related to his COPD with exacerbation. He has obstructive sleep apnea but does not use CPAP. That certainly could be a stress which would make him have the atrial fib/flutter. Also, apparently there is a chronic finding or old finding. He, his daughter, and i all discussed options of a heart cath or allowing his COPD to recover, control his heart rate, continue anticoagulation, and then maybe at some point doing a stress test to evaluate for new ischemia[ or even a heart cath at that time if he is indicated]. He prefers the latter. I believe it is reasonable given that his enzymes are not positive, is not having chest pain, and he has other reasons for having the atrial fib/flutter/shortness of breath. Patient discussed with Dr. Anibal Farooq. He agrees with plan The plan will be to control his heart rate, with the carvedilol and the Cardizem CD. Also, he remain on the Eliquis to reduce his risk of having a stroke. We are checking his O2 sat to see if he would be a candidate for home O2. He might can get home O2 test. I discussed with him he does sleep with his head propped up about 45 to lessen the stress of his sleep apnea on his body/heart. I encouraged him to absolutely follow-up with Dr. Emma Merida-- to treat sleep apnea. His daughter agrees. I will see him back in about 2 - 4 weeks or sooner if needed Thank you for allowing me to participate in this patient's care Current Visit: Yes (2) COPD (chronic obstructive pulmonary disease) Status: Chronic Current Visit: Yes Qualifiers: COPD type: chronic bronchitis Chronic bronchitis type: simple Qualified Code(s): J41.0 - Simple chronic bronchitis (3) Carotid arterial disease Status: Chronic Current Visit: Yes Qualifiers: Laterality: bilateral Qualified Code(s): I77.9 - Disorder of arteries and arterioles, unspecified (4) Coronary artery disease Status: Chronic Current Visit: Yes Qualifiers: Coronary Disease-Associated Artery/Lesion type: [place] artery [place] vs. transplanted heart: [place] heart Associated angina: without angina Qualified Code(s): I25.10 - Atherosclerotic heart disease of [place] coronary artery without angina pectoris (5) Dyslipidemia Status: Chronic Current Visit: Yes (6) History of gastrointestinal bleeding Status: Chronic Current Visit: No Cardiology - PN: Subj Interval history: Food Service Counter Clerk: Dr. Greenberg Mr. Barfield 71-year-old man with a history of GI bleed, COPD, and CAD. Consult to see him for new onset atrial fibrillation with RVR. Dr. Oshea notes that this is not new, it appears he has been in a flutter with 2-1 block as far back as 09/01/2016. He had CABG in 1994 with most recent heart cath in 2010 for he had a chronic total occlusion RCA and no patent vein grafts. Dr. Oshea offered him a heart cath over the weekend, but he wished to think about it. Today he is seen resting in bed in no acute distress. He denies any chest pain. He does report that he had severe shortness of breath episode this morning but this has resolved and he is feeling much better now. 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 We will again discuss with him today regarding a heart catheterization. Exam (Progress Note) - Constitutional Vitals: Period Temp Pulse Resp BP Sys/Martinez Pulse Ox Last 24 Hr 97.4 F-98.6 F 87-106 16-24 125-164/69-100 91-99 General appearance: normal weight, no acute distress - Head Head exam: Absent: abrasion, hematoma - Eye Eye exam: Absent: periorbital swelling, laceration to eyelids - Respiratory Respiratory exam: Present: clear to auscultation bilaterally, other (Oxygen via nasal cannula). Absent: accessory muscle use, chest wall tenderness - Cardiovascular Cardiovascular exam: Present: irregular rhythm, tachycardia - GI/Abdominal GI/Abdominal exam: Present: normal bowel sounds, soft. Absent: distended, tenderness - Extremities Exam Extremities exam: Absent: edema - Neurological Exam Neurological exam: Present: alert, oriented X3 - Psychiatric Psychiatric exam: Present: normal affect, normal mood - Skin Skin exam: Present: warm, dry Result/EKG - Labs CBC & BMP: 09/18/16 04:19 09/18/16 04:19 Lab Results: I have reviewed the past 24 hour labs - EKG EKG results: interpreted by me EKG shows: atrial fibrillation Specialty Discharge - Follow Up or Referrals Follow up with: Jovany Marshall MD [Physician] - 2 Weeks I, Jovany Marshall MD, personally performed the services described in this documentation, ascribed by Taylor Vazquez RN in my presence, and it is both accurate and complete .
[2016-09-19] MEDS: cefTRIAXone 1,000 MG in SODIUM CHLORIDE 0.9% 100 ML IV SCH (15:21)
--- NOTE | 2016-09-19 16:28 | Sleep Medicine Consult ---
Assessment and Plan - Time spent with patient Time spent with patient: Greater than 30 minutes (1) THIAGO (obstructive sleep apnea) Status: Acute Assessment and plan: On further review of past records, Mr. Wells tested positive in March 2013 for severe obstructive sleep apnea with a diagnostic AHI of 50.8 and oxygen desaturations as low as 68%. There was evidence of treatment emergent central sleep apnea with use of CPAP therapy, necessitating BiPAP for treatment. He was prescribed BiPAP at a pressure setting of 15/5 along with supplemental nocturnal oxygen at 2 L/min in-line for persistent sleep-related hypoxia. He reports noncompliance at that time due to issues with pressure setting and poor mask fit. He did not comply with oxygen recommendation following his initial diagnosis and now experiences chronic shortness of breath consistent with progression of his underlying COPD. With his family at his bedside, I reiterated the importance of treating his severe obstructive sleep apnea and reviewed the results of his diagnostic polysomnography. Also reviewed correlation of severe untreated sleep apnea and worsening conditions including heart disease and atrial fibrillation. He is open to trying BiPAP therapy again. He will be discharged later today so I will have him follow-up in the sleep clinic at his earliest convenience. History of Present Illness Chief complaint: hx THIAGO History of present illness: Mr. Wells is a 71 year old male is admitted with acute exacerbation of COPD. He has a known history of obstructive sleep apnea and is noncompliant with therapy. In addition to underlying COPD, he also has coronary artery disease, hypertension and was recently found to have atrial fibrillation. He was encouraged by his environmental protection geologist to resume nightly treatment of his sleep apnea. When discussing his concerns in regards to CPAP therapy, he had issues tolerating the pressure as well as his mask. He never used his device routinely and kept it only for a few months. He is not but has a son who is staying with him to "help out". Both his son and daughter are present today and both report continuation of his abnormal breathing and loud, disruptive snoring during sleep. He sleeps upright in a recliner but despite this position, his snoring and abnormal breathing have continued. He is not currently using oxygen therapy during the day or at night. He does have chronic shortness of breath that worsens with exertion but is not seen routinely by pulmonology. He hopes to be discharged home later today. Home Medications Medication Instructions Recorded Confirmed Type Aspirin EC Tab 81 mg PO QAM 09/01/16 09/16/16 History Lisinopril [Prinivil] 10 mg PO DAILY 09/01/16 09/16/16 History Oxycodone HCl/Acetaminophen 1 each PO QID PRN 09/01/16 09/16/16 History [Percocet 10-325 mg Tablet] Tamsulosin [Flomax] 0.4 mg PO DAILY 09/01/16 09/16/16 History Albuterol Neb [Proventil Neb] 2.5 mg RESP TX Q6HR 09/16/16 09/16/16 History Albuterol Sulfate [Proair HFA] 1 puff INH Q6H PRN 09/16/16 09/16/16 History Budesonide/Formoterol 160-4.5 2 puff INH BID 09/16/16 09/16/16 History [Symbicort 160-4.5] Pantoprazole Sodium 40 mg PO DAILY 09/16/16 09/16/16 History Sertraline HCl 50 mg PO DAILY 09/16/16 09/16/16 History Diltiazem Cd Cap [Cardizem CD] 240 mg PO DAILY #60 capsule 09/19/16 Rx cephALEXin [Keflex] 500 mg PO TID #15 capsule 09/19/16 Rx predniSONE TAB [PredniSONE] 10 mg PO BID #20 tablet 09/19/16 Rx Allergies Allergy/AdvReac Type Severity Reaction Status Date / Time No Known Allergies Allergy Verified 09/16/16 15:23 - Constitutional Constitutional: Present: daytime sleepiness, stops breathing during sleep, weight gain - EENT Nose, mouth and throat: Present: nasal congestion - Cardiovascular Cardiovascular: Present: dyspnea on exertion, palpitations. Absent: chest pain at rest, chest pain with activity - Respiratory Respiratory: Present: cough, wheezing, snoring - Gastrointestinal Gastrointestinal: Present: heartburn. Absent: constipation, diarrhea, nausea - Genitourinary Genitourinary: Present: urinary frequency - Musculoskeletal Musculoskeletal: Present: arthralgias - Neurological Neurological: Absent: behavioral changes, syncope - Psychiatric Psychiatric: Present: depression. Absent: suicidal ideation Exam (Pulmonay) H&P - Constitutional Vitals: Period Temp Pulse Resp BP Sys/Martinez Pulse Ox Last 24 Hr 97.6 F-98.6 F 99-106 18-24 125-164/69-100 91-99 General appearance: over weight - Head Head exam: Present: normocephalic, atraumatic - Eye Pupils: Present: MISSAEL - ENT ENT exam: Present: other (Mallampati class IV) - Expanded ENT Exam ENT Exam Teeth exam: Present: other (upper and lower dentures not worn during sleep) - Neck Neck exam: Present: other (Neck Circumference 19"). Absent: lymphadenopathy, tenderness, thyromegaly - Respiratory Respiratory exam: Present: decreased breath sounds - Cardiovascular Cardiovascular exam: Present: regular rate and rhythm. Absent: systolic murmur - GI/Abdominal GI/Abdominal exam: Present: normal bowel sounds, soft. Absent: distended, tenderness - Extremities Exam Extremities exam: Present: normal capillary refill, full ROM - Neurological Exam Neurological exam: Present: alert, oriented X3 - Psychiatric Psychiatric exam: Present: agitated - Skin Skin exam: Present: warm, dry Medical,Surgical,& Family Hx - Medical History Cardio: History of: Cardiac Dysrhythmia, CHF (His ejection fraction is preserved on this admission), Hypertension Neurology: History of: Seizures (after Carotid Endarterectomy), TIA HEENT: History of: Eye Problem (cataracts) Endocrine: History of: Diabetes Mellitus (NIDDM) Respiratory: History of: COPD Gastrointestinal: History of: Diverticulitis/ Diverticulosis Musculoskeletal: History of: Back/Neck Problems (bulging disc), Degenerative Disk Disease, Herniated Disk Other: History of: Miscellaneous Medical Problems (Sounds like he has had a TIA. ) - Surgical History Cardiac Surgeries: Sugical HX of: Cardiac Surgery (CABG 1987 -no patent grafts at cath in 2010), Carotid Endarterectomy (Bilateral) Neurologic Surgeries: Patient denies: Neurologic Surgery HEENT Surgeries: Surgical HX of: Carotid Endarterectomy (Bilateral), Tonsilectomy & Adenoidectomy - Family History Family History: Reports;: Family Diabetes (father/mother), Family Heart Disease (father/mother), Family Hypertension (father/mother) - Social History Smoking Status: Former smoker Frequency of Alcohol Use: Rarely Type of Drug Use: None Results - Labs CBC & BMP: 09/18/16 04:19 09/18/16 04:19 Specialty Discharge - Follow Up or Referrals Follow up with: Jovany Flores MD [Physician] - 2 Weeks (YOUR APPOINTMENT WITH DR. FLORES IS SCHEDULED FOR Monday OT 1:10 PM. )
== END 2016-09-19 15:55 | disposition home or self-care (01) | DRG 308 ==
LOC: N.ED 15:06 → SUATTDRO 17:40 → N.EDINP 17:40 → N.ICU 18:00 → N.TELES 09-17 20:29
PROVIDERS: ADMIT Internal Medicine; ATTEND Internal Medicine